=== PATIENT | male | born 1930 | race Caucasian/White ===

== ENCOUNTER 2016-09-28 05:38 | Day surgery (SDC) | payer OTHER, MEDICARE ==
[~2016-09-28] VITALS: Ht 167.6 cm; Wt 61.7 kg
--- NOTE | ~2016-09-28 | S ---
[facility] [place] [address] SURGICAL PATH RPT PROCEDURE Name: MARCELINOJAMAR Delvin Room #: DEP [facility]#: [id number] Admission: 09/28/16 Date of : 28 Discharge: 09/28/16 Report #: [id number] Path Case #: [id number] PATHOLOGY REPORT COLLECTION DATE: 09/28/2016 RECEIVED DATE: 09/28/2016 SUBMITTING PHYS: Dr. Gabino Wynn OTHER PHYS: Dr Lurdes Baez SPECIMEN(S) RECEIVED: A.Cyst middle upper back (A) B.Cyst middle high upper back C.Cyst middle upper back (C) D.Scalp lesion * * * * * * * * * * * * FINAL DIAGNOSIS: A. Skin and subcutaneous tissue, upper back, excision: - Epidermal inclusion cyst. B. Skin and subcutaneous tissue, middle high upper back, excision: - Epidermal inclusion cyst with focal rupture and associated foreign body giant cell reaction. C. Skin and subcutaneous tissue, middle upper back, excision: - Epidermal inclusion cyst. D. Skin, scalp lesion, excision: - Actinic keratosis. (GEOM:sarah; d/t: 10/02/2016) PATHOLOGIST: Gregoria Mcnally M.D. REPORT ELECTRONICALLY SIGNED BY: Gregoria Mcnally M.D. DATE/TIME: 10/02/2016 11:31 * * * * * * * * * * * * GROSS PATHOLOGY: A. The specimen is received in formalin, labeled "Jamar Benson and cyst middle upper back." Received is a 4.5 x 2.3 x 2.0 cm unoriented skin ellipse. The epidermal surface is white-caraballo, wrinkled, granular, and raised. The resection margin is inked black and the specimen is sectioned to reveal a 2.6 cm in greatest dimension thin-walled, uniloculated, and previously disrupted cyst filled with white-caraballo and friable soft material. A denial management representative section to include skin and cyst is submitted in cassette A1. B. The specimen is received in formalin, labeled "Jamar Benson and cyst middle high upper back." Received is a 4.0 x 1.3 x 1.3 cm unoriented skin ellipse. The epidermal surface is white-caraballo, wrinkled, granular, and raised. The resection margin is inked black [address] [address] SURGICAL PATH RPT PROCEDURE Name: JAMAR BENSON Delvin Room #: [facility]P [facility] [id number] Admission: 09/28/16 Date of : 29 Discharge: 09/28/16 Report #: [id number] Path Case #: [id number] and the specimen is sectioned to reveal a 1.4 cm in greatest dimension thin-walled, uniloculated, and intact cyst filled with white-caraballo and friable soft material. A denial management representative section to include skin and cyst is submitted in cassette B1. C. The specimen is received in formalin, labeled "Jamar Benson and cyst middle upper back." Received is a 3.4 x 1.3 x 1.4 cm unoriented skin ellipse. The epidermal surface is white-caraballo, wrinkled, granular, and displays a 0.4 x 0.2 cm circular and open defect. The resection margin is inked black and the specimen is sectioned to reveal a 0.9 cm in greatest dimension thin-walled, uniloculated, and intact cyst filled with caraballo-brown material. The cyst corresponds to the epidermal defect. Steel Detailer sections to include skin and cyst are submitted in cassette C1. D. Received in formalin labeled "Benson, Jamar and scalp lesion," is a 2.0 x 0.9 x 0.4 cm ellipse of skin displaying a central 1.0 x 0.7 cm caraballo-brown, poorly circumscribed, and partially crusted lesion. The margins are inked black. The specimen is sectioned into 7 pieces and entirely submitted in cassettes D1 through D3, with the tips placed in cassette D3. (TTL; 10/01/2016) CLINICAL HISTORY: Multiple lesions INITIAL CPT CODE(S): A; 25797 B; 96329 C; 38198 D; 66247 Professional services performed by [facility] at [place] [address], [place] [address] Technical services performed by [facility] at [address] [place] [address], [address], [place] [address]. [facility] [place] [address] PHONE: [phone] DIRECTOR: Denny Steen M.D. * * * END OF REPORT * * *
--- NOTE | ~2016-09-28 | O ---
[facility] [place] [address] OPERATIVE REPORT Name: JAMAR BENSON Room #: DEP [facility]#: [id number] Admission: 09/28/16 Attend Phys: Gabino Wynn MD Discharge: 09/28/16 Date of : 29 Report #: [id number] THIS REPORT FOR: //name// CC: Lurdes Wynn PREOPERATIVE DIAGNOSES: 1. Sebaceous cyst in the back with the lower one showing evidence of infection. Total 3 sebaceous cysts. 2. Scalp lesion. POSTOPERATIVE DIAGNOSES: 1. Sebaceous cyst in the back with the lower one showing evidence of infection. Total 3 sebaceous cysts. 2. Scalp lesion. PROCEDURES PERFORMED: 1. Excision of sebaceous cyst in the back, lower cyst measuring 3 cm. 2. Excision of mid back, measuring 2 cm. 3. Excision of upper mid back sebaceous cyst measuring 2 cm. 4. Excision of scalp lesion measuring 1.5 cm. SURGEON: Gabino Wynn MD. ANESTHETIC: 1% Xylocaine with epinephrine and 0.25% Marcaine. COMPLICATIONS: None. BLOOD LOSS: 10 mL. PROCEDURE NOTE: The patient in the lateral position, the right side was right side down. The back was prepped and draped in sterile fashion. Local anesthetic was used to anesthetize the skin and subcutaneous tissue. The lower cyst which has evidence of infection was excised in a vertical ellipse measuring about 3 cm. The upper 2 cysts were removed transversely with greater 2 cm ellipse. This was excised down to the subcutaneous tissue and the cyst was completely removed. Irrigation was performed. Cautery was used for hemostasis. The skin incision was closed with 4-0 nylon in running fashion. Attention was then paid to the scalp. The patient had abraded part of the scalp and this was not there when I saw him in the office. The lesion is inferior to this. The abraded area more superior. This was treated with local anesthetic and then cauterized the lesion. I am not quite sure what abraded it. The posterior lesion was anesthetized and then excised. This measured 1.5 cm wide. The skin was closed with 4-0 nylon suture. The patient tolerated the procedure well and was taken to recovery. [address] [address] OPERATIVE REPORT Name: JAMAR BENSON Room #: DEP [facility]..#: [id number] Admission: 09/28/16 Attend Phys: Gabino Wynn MD Discharge: 09/28/16 Date of : 29 Report #: [id number] SPECIMEN: Sent to pathology separately. <ELECTRONICALLY SIGNED> By: Gabino Wynn MD 11/25/16 1207 [id number] [id number] Gabino Wynn MD /nt
[~2016-09-28 05:38] MED LIST: ADULT LOW DOSE81 MG PO; ALEVE220 MG PO; ALFUZOSIN HCL10 MG PO; AMOXIL 875 MG875 M1 PO; ARICEPT 5 MG TAB5 MG PO; ATIVAN0.5 MG; ATIVAN0.5 MG PO; ATIVAN1 MG PO; B12INJ IM; BENICAR20 MG PO; BONIVA150 MG PO; CARVEDILOL3.125 MG; COLACE100 MG PO; COMPAZINE10 M1; COZAAR 50 MG TA50 M1 PO; CRESTOR10 MG PO; CRESTOR5 MG; CRESTOR5 MG PO; FINASTERIDE5 MG PO; KEPPRA 500 MG500 MG PO; KEPPRA250 MG PO; LEVETIRACETAM250 MG PO; LIPITOR10 MG PO; LORTAB 5-500 T1 EAC1 PO; MAG-AL PLUS SUS30 ML PO; MILK OF MA2400 MG/10 PO; MIRALAX17 GM PO; NORVASC10 MG PO; NORVASC5 MG PO; PLAVIX 75 MG TA75 M1; PLAVIX 75 MG TA75 M1 PO; PROSCAR 5MG TABL5 M1 PO; PROSCAR 5MG TABL5 MG PO; TAMSULOSIN HCL0.4 M1; TAMSULOSIN HCL0.4 MG PO; TOVIAZ8 MG PO; TRAMADOL 50 MG50 MG; TYLENOL325 MG PO; VITAMIN D 5050000 I1 PO; VITAMIN D50000 UNIT PO
[2016-09-28] MEDS ORDERED: AUGMENTIN 875875 MG PO (09:53)
[2016-09-28 10:00] VITALS: BP 128/93
[2016-09-28 10:03] LABS: HEMATOCRIT 38.8 % (42.0-52.0); HEMOGLOBIN 13.3 gm/dL (14.0-18.0)
[2016-09-28 10:16] LABS: INR 1.1; PROTIME 11.5 Seconds (9.3-11.4)
[2016-09-28] MEDS ORDERED: NORCO 5-325 TA1 EACH PO (11:49)
== END 2016-09-28 15:00 | disposition home or self-care (01) ==
LOC: TBA 05:38 → OR 05:38
PROVIDERS: Surgery
DX: L72.0 Epidermal cyst (principal); L57.0 Actinic keratosis; I10 Essential (primary) hypertension; F32.9 Major depressive disorder, single episode, unspecified; I25.2 Old myocardial infarction; E78.00 Pure hypercholesterolemia, unspecified; F41.9 Anxiety disorder, unspecified; Z87.891 Personal history of nicotine dependence; Z90.49 Acquired absence of other specified parts of digestive tract; Z98.890 Other specified postprocedural states; Z85.048 Personal history of other malignant neoplasm of rectum, rectosigmoid junction, and anus; Z95.5 Presence of coronary angioplasty implant and graft
CPT/HCPCS: 50010; 50101; 50386; 50417; 56526; 62110; 62850; 70005

== ENCOUNTER 2019-02-16 05:32 | Inpatient (IN) | payer OTHER, MEDICARE ==
[2019-02-16] VITALS (9 sets, daily range): BP systolic 147–169; BP diastolic 52–67
[~2019-02-16] VITALS: Ht 165.1 cm; Wt 60.7 kg
--- NOTE | ~2019-02-16 | P ---
[facility] [place] [address] PROCEDURE REPORT Name: JAMAR BENSON Room #: 428-P [facility].#: [id number] Admission: 02/17/19 ������������������ Attend Phys: Gabino Wynn MD Discharge: ������������������ Date of : 29 Report #: [id number] THIS REPORT FOR: //name// CC: Lurdes Wynn MD DATE OF SERVICE: 02/18/2019 PROCEDURE PERFORMED: Upper endoscopy with esophageal dilation. HISTORY OF PRESENT ILLNESS: The patient is an 88-year-old male who was admitted with recent right inguinal hernia repair. Reason for GI consultation yesterday was recurrent dysphagia. The patient had an upper endoscopy with dilation by my partner, Dr. Gilbert, last one being in 2017. The patient does complain of dysphagia to solids primarily. Plan is for repeat upper endoscopy with dilation. DESCRIPTION OF PROCEDURE: The risks and benefits of the procedure were explained to the patient; those risks including but not limited to bleeding, perforation and the risk of sedation. He understood these risks and gave informed consent. Sedation was given using propofol per Anesthesia. Next, using a standard Olympus upper endoscope, the scope was placed in the patient's mouth and advanced under direct vision through the esophagus, stomach and into the second portion of the duodenum. The larynx was normal in appearance. The esophagus was normal throughout. The GE junction was normal. No evidence of stricture or narrowing. There was a mild erythema noted throughout the stomach. No evidence of ulcerations or erosions. The pylorus was normal and patent. The duodenal bulb, first and second portion were all normal. The scope was then brought back up into the patient's stomach. Savary guidewire was inserted through the scope, leaving the guidewire in place as the scope was then withdrawn. Next, a 51-Greenlandic followed by a 48-Greenlandic Savary dilation of the esophagus was performed. The scope was reintroduced into the patient's stomach after each dilation. There was no evidence of mucosal tear after dilation. At this point, the scope was then withdrawn and the procedure terminated. The patient tolerated the procedure well. IMPRESSION: 1. Mild erythema in the gastric mucosa. 2. Otherwise, normal upper endoscopy. RECOMMENDATIONS: Observe the patient post dilation. [address] [address] PROCEDURE REPORT Name: MARCELINOJAMAR Delvin Room #: 428-P [facility].R.#: [id number] Admission: 02/17/19 ������������������ Attend Phys: Gabino Wynn MD Discharge: ������������������ Date of : 29 Report #: [id number] Thank you for allowing me to participate in his care. ��������������������������������������������� ���������������������������������������� By: ��������������������������������������������� 1308 [id number] Osei King MD /nt
[~2019-02-16 05:32] MED LIST changes: +AUGMENTIN 875875 MG PO; -B12INJ IM; +B12INJ PO; +IMDUR 30 MG TAB30 M1 PO; +NITROGLYCERIN0.4 MG SUBLING; +NORCO 5-325 TA1 EACH PO; +PROTONIX 20 MG20 M1 PO
[2019-02-16 11:24] LABS: HEMATOCRIT 34.6 % (42.0-52.0); HEMOGLOBIN 11.9 gm/dL (14.0-18.0)
[2019-02-16 11:36] LABS: APTT 31.3 Seconds (24.5-32.8); INR 1.1; PROTIME 11.9 Seconds (9.3-11.4)
--- NOTE | 2019-02-16 15:04 | H ---
[facility] [place] [address] HISTORY AND PHYSICAL Name: JAMAR BENSON Room #: 150-2 [facility]#: [id number] Admission: 02/16/19 ������������������ Attend Phys: Gabino Wynn MD Discharge: ������������������ Date of : 29 Report #: [id number] THIS REPORT FOR: //name// CC: SPENCER Wynn DATE OF SERVICE: 02/16/2019 HISTORY OF PRESENT ILLNESS: The patient is an 88-year-old, who was admitted through the Emergency Room at [facility] last Saturday. The patient went out to eat dinner on Saturday. The pain started to come on in the abdomen while he was still at the restaurant. The patient early in the morning on Saturday went to the Emergency Room. He waited about 3 hours before going to the Emergency Room. The pain was described as 8-9/10. No nausea or vomiting. The pain was on the right side, in the lower abdomen, groin area. The patient said that he was evaluated by the Emergency Room and he had a bulge on the right side that the ER pushed back in. Once the hernia was pushed back in, his pain resolved. The patient did have a CT scan that showed a right inguinal hernia with small bowel loop in the hernia. The patient was on Plavix, and surgery was held until he comes off the Plavix. The patient came to see me. He did have a left-sided hernia that caused the small bowel obstruction prior to that surgery. Because of the symptomatic nature of his hernia, I recommend that he proceed with repair of the right inguinal hernia. Plan on doing it laparoscopically also. The procedure was discussed with his helmet hat brim cutter and the patient understands the procedure and wishes to proceed. PAST MEDICAL HISTORY: The patient has a history of coronary artery disease, status post bypass. Postural dizziness, hypercholesterolemia, bilateral carotid stenosis, history of TIA. Cognitive impairment with age. The patient also has a history of colon cancer. MEDICATIONS: Plavix, which he has held for a week, 10 mg daily, vitamin D3, Imdur, Keppra, Cozaar 25 mg, Protonix 20 mg, Crestor 5 mg, vitamin B12. ALLERGIES: HE HAS ALLERGIES TO COMPAZINE. PAST SURGICAL HISTORY: Carotid endarterectomy, cholecystectomy, coronary artery bypass, bilateral inguinal hernia repair many years ago, repair of a left recurrent hernia laparoscopically, I believe in 2011; laminectomy, colon cancer surgery, excision of skin cancer. FAMILY HISTORY: Cancer and stroke, cancer on the mother's side and stroke on the father's side. SOCIAL HISTORY: The patient never smoked. He does not drink. He is retired. [address] [address] HISTORY AND PHYSICAL Name: MARCELINOJAMAR Delvin Room #: 150-2 [facility]..#: [id number] Admission: 02/16/19 ������������������ Attend Phys: Gabino Wynn MD Discharge: ������������������ Date of : 29 Report #: [id number] REVIEW OF SYSTEMS: He has been getting along pretty well. No chest pain. He does have dizziness when he stands up. His blood pressure medication is being tapered. No shortness of breath. No swelling in the extremity. PHYSICAL EXAMINATION: GENERAL: He is an elderly male. 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 HEENT: Extraocular muscles are intact. Oropharynx is clear. NECK: No JVD. LUNGS: Clear to auscultation. HEART: Regular rate and rhythm. No murmur or gallop. ABDOMEN: Soft, nondistended, nontender. No mass. Has a hernia in the epigastric area, likely from his heart surgery. This is where it joins the gallbladder surgery. He has incision in the mid part of the abdomen from his colectomy. The patient does have a right inguinal hernia. It is reducible. No hernia detected on the left side. He is sensitive and somewhat tender on exam. EXTREMITIES: No cyanosis, clubbing or edema. Motor function is intact for his age. Sensation is intact. IMPRESSION: The patient is an 88-year-old who was admitted to the Emergency Room and kept overnight at [facility] a week ago. The patient went in with pain in the side of the right inguinal hernia and he felt immediate relief after the hernia was reduced by the Emergency Room. CT did show right inguinal hernia with a loop of bowel in it. I do not know if the CT was done before reduction or after. The patient is recommended to have the hernia repair since he is high risk for incarceration and recurrent pain. Interestingly, he did have a similar problem from his left inguinal hernia. Both these hernias are recurrent in nature. They have been repaired many years ago with open incision-type repair. The patient is recommended to undergo repair of this hernia with laparoscopic properitoneal approach. Procedure was discussed. Hopefully, the space will open up well. The patient understands the procedure and wishes to proceed. Risk of bleeding, infection, anesthetic risks were discussed. Cardiac clearance has been obtained. The patient will be off of Plavix for about a week now. ��������������������������������������������� <ELECTRONICALLY SIGNED> ���������������������������������������� By: Gabino Wynn MD ��������������������������������������������� 02/16/19 1504 [id number] Gabino Wynn MD /nt
--- NOTE | 2019-02-17 03:19 | NUR ---
PATIENT ARRIVED ON UNIT AT 1840 VIA CART ACCOMPANIED BY SPOUSE AND ED PERSONEL. PATIENT ALERT AND ORIENTED BUT SOMEWHAT FORGETFUL. HAS THREE BANDAIDS ON ABD, THE ONE JUST BELOW THE BELLYBUTTON HAS SOME BLOOD ON IT THAT ALMOST COVERS THE BED OF THE BANDAID. THE ONE ON THE R SIDE HAS A SMALL AMOUNT ON IT. PATIENT'S PULSE WAS RUNNING IN THE 70'S AND 80'S THEN WENT DOWN INTO THE 40'S. DR HAYNES WAS NOTIFIED AND HE SAID THAT WAS WHAT HE WAS IN RECOVERY ROOM AND NOT TO WORRY ABOUT IT. DR HAYNES SAID IF HE HAS NOT VOIDED TO DO A BLADDER SCAN AND PUT A DE ANDA CATH IN IF <500. PATIENT VOIDED ONLY A SCANT AMOUNT, BLADDER SCAN WAS DONE AND PATIENT 519ML IN BLADDER. 16FR CATH INSERTED WITH SOME DIFFICULTY. PATIENT C/O PAIN DURING PROCESS. ASKED SEVERAL TIMES IF HE WANTED TO QUIT AND REFUSE THE DE ANDA AND HE SAID NO TO KEEP GOING. URINE IS YELLOW WITH SEDIMENT. C/P PAIN OF 2 WHILE LYING STILL BUT GOES UP TO 7 WHEN MOVING. PATIENT DID NOT WANT PAIN MED WHEN OFFERED. SLEPT MOST OF NIGHT.
[2019-02-17 03:57] VITALS: BP 129/47
[2019-02-17 08:00] VITALS: BP 132/44
--- NOTE | 2019-02-17 10:41 | NUR ---
INITIAL ASSESSMENT: Pt evaluated for d/c planning needs. Reviewed chart and spoke with nurse, pt and pt's daughter. Pt is alert and oriented. Pt lives in house with 87 year old spouse. Pt was independent with ADL's prior to admission to the hospital and used no DME, but has walker and cane. Pt remains active in the community and is still driving. Pt had [facility] in the past. Pt was given choices and wants to have [facility] on d/c from hospital. Pt plans on returning home with home health services. Patient choice letter signed and placed on chart. Notified [facility] of d/c plans and they are able to accept pt. Will remain available to assist as needed.
--- NOTE | 2019-02-17 12:24 | O ---
[facility] [place] [address] OPERATIVE REPORT Name: JAMAR BENSON Room #: 428-P [facility]#: [id number] Admission: 02/16/19 ������������������ Attend Phys: Gabino Wynn MD Discharge: ������������������ Date of : 29 Report #: [id number] THIS REPORT FOR: //name// CC: Eugenio Cueto MD [facility] Lurdes Wynn DATE OF SERVICE: 02/16/2019 PREOPERATIVE DIAGNOSIS: Symptomatic right inguinal hernia with recent Emergency Room visits for pain, possible incarcerated, recurrent inguinal hernia. POSTOPERATIVE DIAGNOSIS: Symptomatic right inguinal hernia with recent Emergency Room visits for pain, possible incarcerated, recurrent inguinal hernia. PROCEDURES PERFORMED: Laparoscopic repair of recurrent right inguinal hernia. ANESTHESIA: General. SURGEON: Gabino Wynn M.D. COMPLICATIONS: None. ESTIMATED BLOOD LOSS: 5 mL. FINDINGS: The patient had an indirect hernia sac with also a small femoral hernia. DESCRIPTION OF PROCEDURE: With the patient under general anesthesia, a Katz catheter was placed. IV antibiotic was administered. Abdomen was prepped and draped in sterile fashion. Timeout was performed. A 0.25% Marcaine was used to anesthetize the skin adjacent to the umbilicus on the right side. A transverse incision of about 2 cm was made in the right adjacent to the umbilicus transversely. Fascia covering rectus muscle was dissected free. The anterior fascia was opened transversely. The muscle was spread. Posterior sheath was then palpated. The space between the posterior sheath and the rectus muscle was dissected bluntly. A balloon trocar was placed through the space. The balloon was inflated. CO2 was then administered. A 5 mm trocar was placed right of the midline about an inch and a half below the umbilicus. The properitoneal space was dissected free. The inferior epigastric vessels identified on the right side and preserved from harm. The lateral wall was opened up without difficulty. A second 5 mm trocar was placed through the lateral wall once it was freed up. The patient had a small amount of fat that went into the femoral canal. This was pulled out. Small femoral hernia seen. There is some weakness in the floor of the canal, but no true direct defect. Dissecting over the cord [facility] [address] [place] [address] OPERATIVE REPORT Name: JAMAR EBNSON Room #: 428-P [facility] M.R.#: [id number] Admission: 02/16/19 ������������������ Attend Phys: Gabino Wynn MD Discharge: ������������������ Date of : 29 Report #: [id number] structure did show significant thickening over this and a formed and thick indirect hernia sac was found. This was freed from the underlying cord without difficulty. This was fairly good size hernia sac. Laterally on the cord, there is a lipoma and this was also cord lipoma, this was also reduced. The cord was well skeletonized. A large right-sided 3DMax lightweight mesh was then placed through the balloon trocar, opened in the properitoneal space. This was then positioned. This covered the internal ring well. The mesh also was positioned under the pubic bone. The mesh was tacked laterally to the wall with SorbaFix. The mesh inferior medial aspect of it was tacked to the Jerrell's ligament over the pubic bone, superomedially to the rectus muscle. The fat in the hernia sac was medial to the mesh and excluded from going into the mesh. The CO2 was evacuated from the properitoneal space. Some of the air did dissect intraabdominally. The trocars removed. Posterior fascia was opened along with the peritoneum. Air was evacuated from the abdominal cavity. The posterior fascia was closed with [id number] 0 Vicryl. The anterior fascia was then closed with [id number]-do-[id number] 0 Vicryl x 2. Skin was irrigated. The skin at the trocar site was closed with 5-0 PDS. The suture placed subcutaneously burying the knot. The Steri-Strip, Band-Aids used for dressing. The Katz catheter was removed at the end of the case. The patient was awakened and taken to the recovery. The patient tolerated the procedure well. ��������������������������������������������� <ELECTRONICALLY SIGNED> ���������������������������������������� By: Gabino Wynn MD ��������������������������������������������� 02/17/19 1224 [id number] Gabino Wynn MD /nt
[2019-02-17 13:32] VITALS: BP 132/44
[2019-02-17 14:31] VITALS: BP 132/44
--- NOTE | 2019-02-17 19:10 | NUR ---
pt assisted xs 2 to bedside chair. at bedside. is confused at times. states doctor did not explain about meds this nurse was in room and doctor did explain.
[2019-02-17 20:00] VITALS: BP 138/44
--- NOTE | 2019-02-18 01:37 | NUR ---
HAS LOTS OF CONCERN WHEN THIS NURSE ASSUMED CARE. LIKE, NO ONE INFORM THEM IF PT CAN NOT WORK WITH PATIENT, OR HOW COME PATIENT HAS NOT SAT NOR AMBULATED. PT WAS ASSISTED TO THE CHAIR AND STAYED FOR ALMOST 2.5 HOURS THEN AMBULATED AROUND THE HALLWAY WITH X2 ASSIST, VERY UNSTEADY USING ROLLER WALKER AND GAIT BELT, CONSENT FOR ESOPHAGEAL DILATATION SIGNED, PT NPO AFTER MIDNIGHT FOR THE DILATATION TODAY IN GI, BANDAIDS CDI TO ABDOMEN, DE ANDA PATENT, AWARE IT WILL BE PULLED AT 0630, MONITORED.
[2019-02-18 05:00] VITALS: BP 130/52
--- NOTE | 2019-02-18 07:04 | NUR ---
DE ANDA CATH DISCONTINUED, TOLERATED PROCEDURE.
--- NOTE | 2019-02-18 10:52 | NUR ---
PT OFF UNIT AT THIS TIME FOR PROCEDURE TO DO ESOPHAGEAL DILATION. PT W/O PAIN OR RESP DISTRESS. DAUGHTER AT BEDSIDE.
--- NOTE | 2019-02-18 13:49 | NUR ---
PT BACK FROM POST OP. PT ALERT XS 4.
--- NOTE | 2019-02-18 15:20 | NUR ---
PT BACK FROM POST OP ASSISTED TO BATHROOM SO PATIENT COULD URINATE. AM MEDS THAT WERE HELD PRE OP GIVEN AT THAT TIME.
--- NOTE | 2019-02-18 15:21 | NUR ---
PT BACK FROM POST OP PT STATES NO PAIN BUT IS TIRED, FLUIDS INFUSING ORDERED, REGULAR DIET. DRINKING WATER AND SPRITE AT THIS TIME. 3 LAP SITES CLOSED WITH DERMABOND.
[2019-02-18 16:00] VITALS: BP 153/68
--- NOTE | 2019-02-18 16:22 | NUR ---
Following for d/c planning needs. Reviewed chart and spoke with nurse, pt, spouse and physician. Spouse said she is interested in patient going to SNF on d/c from hospital. Referrals sent to [facility] and [facility]. Will remain available to assist as needed.
[2019-02-18 19:21] VITALS: BP 148/68
--- NOTE | 2019-02-18 20:16 | NUR ---
DE ANDA INSERTERED AT APPROX 1630 WITH IMMEDIATE RETURN OF LIGHT YELLOW URINE. MINIMAL DISCOMFORT TO PATIENT [address] HAYNES IN ROOM EXPLAINED TO SPOUSE OF PATIENT THAT HE DID NOT KNOW WHY PATIENT WAS ABLE TO URINATE. PT HAD 100 CC IN URINAL BUT BLADDER SCAN SHOWED 915 CC ON BLADDER.
[2019-02-19 04:33] VITALS: BP 118/39
--- NOTE | 2019-02-19 05:33 | NUR ---
PT'S DTR AT HIS BEDSIDE AT THE START OF SHIFT.SHE HAD SOME CONCERNS ABOUT HER DAD'S INABILITY TO URINATE,AM NURSE WAS ABLE TO EXPLAIN THE SITUATION TO HER.PT STATED THAT HE WOULD WANT TO WALK AROUND THE UNIT LATER ON THE SHIFT BUT WHEN THIS NURSE WENT TO PT'S ROOM TO WALK HIM,HE DECLINED AND STATED THAT HE WOULD WALK IN THE AM.DE ANDA TO DD, LIGHT YELLOW URINE NOTED IN THE BAG.PT DENIED PAIN SO FAR.BANDAID ON ABD STILL DRY AND INTACT.PT ABLE TO MAKE HIS NEEDS KNOWN.FALL PRECAUTIONS IN PLACE,CALL LIGHT WITHIN REACH.
[2019-02-19 09:17] VITALS: BP 118/44
--- NOTE | 2019-02-19 12:43 | NUR ---
Following for d/c planning needs. Received telephone calls from commercial coordinator at both [facility] and [facility]. Both are able to accept pt on Saturday. [facility]. Will await orders from physician.
--- NOTE | 2019-02-19 16:30 | NUR ---
PT GIVEN SHOWER AND BANDAIDS REMOVED FROM OPERATIVE SITES ON ABD. PT GIVEN CLOPIDOGREL BISULATE 75 MG AND ENOXAPRIN [address] HAYNES ORDERS HAD GIVE AND HOLD ON THEM. DOCTOR SAID TO GIVE.
[2019-02-19 18:13] VITALS: BP 133/43
[2019-02-20 05:20] VITALS: BP 135/48
--- NOTE | 2019-02-20 05:53 | NUR ---
PT WAS OBSERVED SITTING UP IN THE CHAIR AT THE START OF SHIFT.PT STAYED IN HIS CAHIR [place]ILL [place] BEFORE HE RETIRED TO HIS BED.STUDIO ARTIST HELPED PT SHAVE AND CLEAN UP BEFORE HE RETIRED TO BED.PT SLEPT THRU THE NIGHT.DE ANDA CATH TO DD,YELLOW URINE NOTED IN THE BAG.FALL PRECAUTIONS IN PLACE,CALL LIGHT WITHIN REACH.
[2019-02-20 07:45] VITALS: BP 142/46
--- NOTE | 2019-02-20 10:02 | NUR ---
ASSESMENT COMPLETED. VSS. A/O. DENIES PAIN. NO SOA. NO NV. DE ANDA TO DD. PT ASSISTED TO CHAIR AT THIS TIME. CHAIR ALARM ON. WILL CONT. TO MONITOR.
[2019-02-20] MEDS ORDERED: MIRALAX17 GM PO (13:18)
[2019-02-20] MEDS ORDERED: HYDROCODON-ACE1 EAC7 PO (13:18)
--- NOTE | 2019-02-20 14:10 | NUR ---
Received order from physician to arrange d/c to [facility] today. Faxed orders to facility. Their w/c van will transport at [phone]. Chart copied. Patient choice letter completed and placed on chart. No other needs identified.
[2019-02-20] MEDS ORDERED: TYLENOL EXTRA500 MG PO (14:42)
[2019-02-20] MEDS ORDERED: VITAMIN D1000 UNI1 PO (14:42)
--- NOTE | 2019-02-20 15:09 | NUR ---
REPORT CALLED IN TO FACILITY. WAITING FOR TRANSPORT.
== END 2019-02-20 15:30 | DRG 352 ==
LOC: TBA 05:32 → OR 05:32 → TBA 05:35 → OR 06:29 → 4E 18:57 → OR 18:58 → 4E 18:58
PROVIDERS: ADMIT Surgery
PROC: 0YU54JZ Supplement Right Inguinal Region with Synthetic Substitute, Percutaneous Endoscopic Approach (ICD-10-PCS; principal; 2019-02-16)
PROC: 0D758ZZ Dilation of Esophagus, Via Natural or Artificial Opening Endoscopic (ICD-10-PCS; 2019-02-18)
DX: K40.91 Unilateral inguinal hernia, without obstruction or gangrene, recurrent (principal); M19.90 Unspecified osteoarthritis, unspecified site; R33.8 Other retention of urine; N32.89 Other specified disorders of bladder; N40.1 Benign prostatic hyperplasia with lower urinary tract symptoms; R13.10 Dysphagia, unspecified; I25.10 Atherosclerotic heart disease of native coronary artery without angina pectoris; Z95.1 Presence of aortocoronary bypass graft; Z90.49 Acquired absence of other specified parts of digestive tract; Z86.73 Personal history of transient ischemic attack (TIA), and cerebral infarction without residual deficits; Z88.8 Allergy status to other drugs, medicaments and biological substances; Z85.038 Personal history of other malignant neoplasm of large intestine
CPT/HCPCS: 10084; 10783; 50010; 50101; 50411; 50455; 50507; 50555; 50848; 53065; 53307; 56525; 56526; 62110; 62900; 70005